=== PATIENT | male | born 1990 | race African-American/Black ===

== ENCOUNTER 2017-02-17 23:43 | Emergency (ER) | payer BC ==
[~2017-02-17] VITALS: Ht 170.2 cm; Wt 98.4 kg
[2017-02-18] MEDS ORDERED: NAPROSYN500 MG PO (00:54)
[2017-02-18 01:15] VITALS: BP 134/73
== END 2017-02-18 01:18 | disposition home or self-care (01) ==
LOC: ER 23:43
DX: M72.2 Plantar fascial fibromatosis (principal); H10.9 Unspecified conjunctivitis; F10.99 Alcohol use, unspecified with unspecified alcohol-induced disorder; Z87.891 Personal history of nicotine dependence; Z98.890 Other specified postprocedural states

== ENCOUNTER 2017-07-06 21:33 | Emergency (ER) | payer OTHER ==
[~2017-07-06] VITALS: Ht 170.2 cm; Wt 99.8 kg
[~2017-07-06 21:33] MED LIST: NAPROSYN500 MG PO
[2017-07-06] MEDS ORDERED: NOHOMEMEDICATIONS (21:43)
[2017-07-06] MEDS ORDERED: FLEXERIL PO (22:18)
[2017-07-06] MEDS ORDERED: MOBIC15 MG PO (22:18)
== END 2017-07-06 22:30 | disposition home or self-care (01) ==
LOC: ER 21:33
DX: S39.012A Strain of muscle, fascia and tendon of lower back, initial encounter (principal); Z98.890 Other specified postprocedural states; Z87.891 Personal history of nicotine dependence; X50.1XXA Overexertion from prolonged static or awkward postures, initial encounter; Y93.89 Activity, other specified; Y92.89 Other specified places as the place of occurrence of the external cause; Y99.8 Other external cause status